=== PATIENT | male | born 2000 | race Caucasian/White ===

== ENCOUNTER 2022-01-14 12:09 | Emergency (ER) | payer MEDICAID ==
[~2022-01-14] VITALS: Ht 170.2 cm; Wt 141.0 kg
[2022-01-14 12:29] VITALS: BP 158/99
[2022-01-14] MEDS ORDERED: KETOROLAC 60MG/2ML VIAL IM ONE (13:15)
[2022-01-14] MEDS ORDERED: IBUP-2029 MT (14:20)
== END 2022-01-14 18:25 | disposition home or self-care (01) ==
LOC: ER 12:09
DX: M25.561 Pain in right knee (principal); M54.50 Low back pain, unspecified; W18.30XA Fall on same level, unspecified, initial encounter; Y93.89 Activity, other specified; Y92.89 Other specified places as the place of occurrence of the external cause; Y99.8 Other external cause status
CPT/HCPCS: 72100; 73562; 96372; 99284; J1885

== ENCOUNTER 2022-03-16 13:50 | Emergency (ER) | payer OTHER, MEDICAID ==
[~2022-03-16] VITALS: Ht 170.2 cm; Wt 150.0 kg
[~2022-03-16 13:50] MED LIST: IBUP-2029 MT
[2022-03-16] MEDS ORDERED: IBUPROFEN 800MG TABLET PO ONE (16:15)
[2022-03-16] MEDS ORDERED: IBUP-2030 MT (16:18)
[2022-03-16 16:36] VITALS: BP 147/86
== END 2022-03-16 16:38 | disposition home or self-care (01) ==
LOC: ER 13:50
DX: M25.532 Pain in left wrist (principal); Z90.49 Acquired absence of other specified parts of digestive tract
CPT/HCPCS: 29125; 73110; 99283

== ENCOUNTER 2023-06-01 23:56 | Emergency (ER) | payer OTHER, MEDICAID ==
[~2023-06-01] VITALS: Ht 170.2 cm; Wt 131.0 kg
[~2023-06-01 23:56] MED LIST changes: +IBUP-2030 MT
[2023-06-02] VITALS: O2SAT 98
[2023-06-02] MEDS ORDERED: ACET-2084 MT (02:14)
[2023-06-02] MEDS ORDERED: IBUP-2458 MT (02:14)
[2023-06-02] MEDS ORDERED: KETOROLAC 30MG/ML VIAL IM ONE (02:15)
[2023-06-02] MEDS ORDERED: DEXAMETHASONE 10 MG/ML VIAL PO ONE (02:15)
[2023-06-02 02:59] VITALS: TEMP 98.5
[2023-06-02 03:03] VITALS: BP 167/85; PULSE 73; RESP 18
[2023-06-02 04:07] LABS: MONOTEST NEGATIVE (NEGATIVE)
== END 2023-06-02 03:03 | disposition home or self-care (01) ==
LOC: ER 06-02 00:20
DX: J03.90 Acute tonsillitis, unspecified (principal); J45.909 Unspecified asthma, uncomplicated; Z90.49 Acquired absence of other specified parts of digestive tract
CPT/HCPCS: 87430; 86308; 87070; 96372; 99283; J1100; J1885; Z7610

== ENCOUNTER 2023-06-03 21:35 | Emergency (ER) | payer OTHER, MEDICAID ==
[~2023-06-03] VITALS: Ht 170.2 cm; Wt 133.0 kg
[~2023-06-03 21:35] MED LIST changes: +ACET-2084 MT; +IBUP-2458 MT
[2023-06-03 21:50] VITALS: TEMP 98.3; O2SAT 98
[2023-06-03] MEDS ORDERED: KETOROLAC 30MG/ML VIAL IM NR (22:52)
[2023-06-03 23:40] VITALS: BP 149/83; PULSE 78; RESP 12
[2023-06-04] MEDS ORDERED: NAPR-681 PO (00:55)
[2023-06-06 04:11] LABS: CHLAMYDIA TRACHOMATIS NAA Negative (Negative); NEISSERIA GONORRHOEAE NAA Negative (Negative)
== END 2023-06-04 01:43 | disposition home or self-care (01) ==
LOC: ER 21:35
DX: J02.9 Acute pharyngitis, unspecified (principal)
CPT/HCPCS: 99283; 87430; 87070; 96372; 87491; 87591; J1885

== ENCOUNTER 2024-03-28 23:14 | Emergency (ER) | payer OTHER, MEDICAID ==
[~2024-03-28] VITALS: Ht 170.2 cm; Wt 150.1 kg
[~2024-03-28 23:14] MED LIST changes: +NAPR-681 PO
[2024-03-28 23:23] VITALS: O2SAT 98
[2024-03-29 00:27] LABS: BASOPHILS % 0.7 % (0.0-2.0); DIFFERENTIAL COMMENT 0; EOSINOPHILS % 1.4 % (0.0-5.0); HEMOGLOBIN. 12.4 g/dL (14.0-18.0); LYMPHOCYTES % 37.5 % (20.0-50.0); MEAN CORPUSCULAR HEMOGLOBIN 23.3 pg (28.0-32.0); MEAN CORPUSCULAR HGB CONC 31.8 g/dL (31.0-37.0); MEAN CORPUSCULAR VOLUME 73.3 fL (80.0-94.0); MEAN PLATELET VOLUME 7.8 fl (7.4-10.4); MONOCYTES % 7.8 % (2.0-8.0); NEUTROPHILS % 52.6 % (40.0-76.0); PLATELET 302 x1000/uL (130-400); RED BLOOD CELL COUNT 5.32 mill/uL (4.7-6.1); RED CELL DISTRIBUTION WIDTH 15.6 % (11.6-14.6); WHITE BLOOD COUNT 9.4 x1000/uL (4.5-11.0)
[2024-03-29 00:29] LABS: CHLORIDE 108 mEq/L (98-107); POTASSIUM 3.7 mEq/L (3.5-5.1); SODIUM 141 mEq/L (136-145)
[2024-03-29 00:30] LABS: CALCIUM 9.6 mg/dL (8.7-10.4); CARBON DIOXIDE 28 mEq/L (21-32)
[2024-03-29 00:35] LABS: CREATININE 0.8 mg/dL (0.6-1.3); GLUCOSE 148 mg/dL (70-105); UREA NITROGEN BLOOD 17 mg/dL (9-23)
[2024-03-29 00:39] LABS: TROPONIN I HIGH SENSITIVITY < 4 ng/L (3.0-53)
[2024-03-29 03:09] VITALS: BP 148/89; PULSE 71; RESP 19; TEMP 98.7
== END 2024-03-29 03:11 | disposition home or self-care (01) ==
LOC: ER 23:14
DX: R07.89 Other chest pain (principal); J45.909 Unspecified asthma, uncomplicated; I10 Essential (primary) hypertension; Z90.49 Acquired absence of other specified parts of digestive tract; Z79.899 Other long term (current) drug therapy
CPT/HCPCS: 36415; 71045; 80048; 84484; 85025; 93005; 99285